=== PATIENT | female | born 1985 | race African-American/Black ===

== ENCOUNTER 2020-05-13 17:44 | Emergency (ER) | payer OTHER ==
[~2020-05-13] VITALS: Ht 160 cm; Wt 86.2 kg
[2020-05-13 19:01] VITALS: BP 124/81
--- NOTE | 2020-05-13 19:01 | NUR ---
PT AAOX4. BIBSELF C/O OF RIGHT THIGH PAIN X 4 DAYS. SENT BY HER PMD TO R/O DVT. PT PLACED IN BED 11 ON MONITOR AND PULSE OX. AWAITING EVAL AND ORDERS.
== END 2020-05-13 20:19 | disposition home or self-care (01) ==
LOC: ER 17:52
DX: M79.661 Pain in right lower leg (principal); Z88.1 Allergy status to other antibiotic agents
CPT/HCPCS: 93971-TC